=== PATIENT | female | born 1935 | race Caucasian/White ===

== ENCOUNTER → 2016-10-23 | Outpatient (CLI) | payer MEDICARE, BC ==
[~2016-10-23] MED LIST: /CELE20CA OR; /ESOM40CA OR; ADVIL PM PO; ALLO100T OR; AMBI10TA OR; AMLO5TAB OR; ASPI81TA45 OR; BENI20TA11 PO; CARV6.25 OR; FISH1000 OR; HYDR25TA6 OR; VENL75TA2 OR; VIT D 2000 PO; VITA500C OR; VYTO10TA5 OR
[2016-10-23 20:12] LABS: BLOOD UREA NITROGEN 24 MG/DL (7-18); GLOMERULAR FILTRATION RATE > 60.0 (>32)
== END ==
LOC: M WUC 16:12
PROVIDERS: ATTEND Internal Medicine
DX: R10.9 Unspecified abdominal pain (principal)

== ENCOUNTER → 2016-10-24 | Outpatient (CLI) | payer MEDICARE, BC ==
[~2016-10-24] MED LIST changes: +ISOVUE-370 76% 100ML VIAL (Q9967) As Ordered ONE
== END ==
LOC: M RAD 14:30
PROVIDERS: ATTEND Internal Medicine
DX: C34.12 Malignant neoplasm of upper lobe, left bronchus or lung (principal); N60.19 Diffuse cystic mastopathy of unspecified breast

== ENCOUNTER → 2016-10-24 | Outpatient (CLI) | payer MEDICARE, BC ==
[~2016-10-24] MED LIST changes: -ISOVUE-370 76% 100ML VIAL (Q9967) As Ordered ONE
--- NOTE | 2016-10-30 16:13 | REP ---
CT CHEST WITH IV CONTRAST: TECHNIQUE: Axial contrast enhanced images from the thoracic inlet to the upper abdomen using 100 mL Isovue 370 intravenous contrast material with multiplanar reformations. Comparison studies have been obtained from 05/03/2016 and 04/04/2016, performed at [facility] in [facility]. The prior CT scan showed a spiculated mass and surrounding consolidation. According to current history, the patient had radiation to the left lung. The spiculated mass does appear to have decreased in size. The mass measures approximately 1.3 x 1.7 cm, previously 2.1 x 1.9 cm on the 05/03/2016 exam. There is again adjacent consolidation in the left upper lobe, which has improved since the prior exam. No new parenchymal nodule is seen bilaterally. There are normal size mediastinal and hilar lymph nodes present. There is no pleural or pericardial effusion. The heart is normal in size. There is mild ectasia of the thoracic aorta without dissection. There are mild atherosclerotic calcifications. There are degenerative changes of the spine. The visualized upper abdominal structures appear essentially unremarkable. There is a calculus in the upper pole of the right kidney and there is a left renal cyst. IMPRESSION: Decreased size of spiculated mass in the left upper lobe with improved surrounding consolidative opacity as discussed in detail above. No new nodule or adenopathy. Signed by Matthew Jones MD 10/30/2016 04:48 P
== END ==
LOC: M RAD 14:13
PROVIDERS: ATTEND Radiology Radiation Oncology
DX: C34.12 Malignant neoplasm of upper lobe, left bronchus or lung (principal); N60.19 Diffuse cystic mastopathy of unspecified breast
CPT/HCPCS: 71260; Q9967

== ENCOUNTER → 2017-12-12 | Outpatient (CLI) | payer MEDICARE, BC ==
[2017-12-12 13:10] LABS: ANION GAP 11 MEQ/L (8-16); BLOOD UREA NITROGEN 19 MG/DL (7-18); CALCIUM LEVEL 9.2 MG/DL (8.8-10.2); CARBON DIOXIDE LEVEL 27 MEQ/L (21-32); CHLORIDE LEVEL 106 MEQ/L (98-107); CREATININE FOR GFR 0.99 MG/DL (0.55-1.30); GLOMERULAR FILTRATION RATE 57.2 (>32); GLUCOSE, FASTING 125 MG/DL (70-100); POTASSIUM SERUM 4.1 MEQ/L (3.5-5.1); SODIUM LEVEL 144 MEQ/L (136-145)
== END ==
LOC: M WUC 09:43
DX: C34.92 Malignant neoplasm of unspecified part of left bronchus or lung (principal)
CPT/HCPCS: 80048